=== PATIENT | female | born 1980 | race Caucasian/White ===

== ENCOUNTER 2021-09-05 09:35 | Outpatient (CLI) | payer OTHER, SELFPAY ==
[2021-09-05 19:34] LABS: Vitamin D 25 Hydroxy 38.3 ng/mL
[2021-09-09 15:00] LABS: Testosterone Free 0.4 pg/mL (0.1-6.4); Testosterone Total 6 ng/dL (2-45)
== END 2021-09-05 09:36 | disposition home or self-care (01) ==
LOC: ANHBWCLAB 09:37
PROVIDERS: Visit Provider Obstetrics & Gynecology
DX: R53.83 Other fatigue (principal)
CPT/HCPCS: 36415; 82306; 84402; 84403